=== PATIENT | female | born 1955 | race Caucasian/White ===

== ENCOUNTER → 2023-10-26 12:50 | Outpatient (REF) | payer MEDICARE, SELFPAY | LOC: WDC 12:50 | PROVIDERS: ATTENDING PHYSICIAN Nurse Practitioner Family; FAMILY PHYSICIAN Family Medicine | DX: Z12.31 Encounter for screening mammogram for malignant neoplasm of breast (principal) | CPT/HCPCS: 77063; 77067 ==

== ENCOUNTER → 2024-10-30 11:03 | Outpatient (REF) | payer MEDICARE, SELFPAY | LOC: WDC 11:03 | PROVIDERS: ATTENDING PHYSICIAN Obstetrics & Gynecology; FAMILY PHYSICIAN Family Medicine | DX: Z12.31 Encounter for screening mammogram for malignant neoplasm of breast (principal) | CPT/HCPCS: 77063; 77067 ==